=== PATIENT | female | born 1960 | race Caucasian/White ===

== ENCOUNTER 2017-04-29 22:18 | Emergency (ER) | payer BC ==
[2017-04-29 22:23] VITALS: BP 132/95; PULSE 81; TEMP 98; BMI 28.3
[2017-04-29] MEDS ORDERED: VANCOMYCIN 1,000 MG in DEXTROSE 5%-WATER - 250 ML IVPB STA (22:45)
--- NOTE | 2017-04-29 22:47 | PDOC ---
History of Present Illness - General Chief Complaint: Ear Problem Stated Complaint: RT EAR PAIN Time Seen by Provider: 04/29/17 22:44 - History of Present Illness Initial Comments: 04/29/17 22:59 This is a 56-year-old female who has a history of a recent left quaker abscess. Patient now comes in complaining of similar discomfort on her right quaker and right area just in front of her ear. Patient is also complaining of pain in her ear. Patient was given a course of amoxicillin for the left-sided abscess which spontaneously opened and drained and then resolved. Patient denies history of other prior abscesses in the past. Patient denies any fevers or chills. Patient denies any other complaints. Patient said she is otherwise healthy. PAST MEDICAL HISTORY: no significant history PAST SURGICAL HISTORY: no significant history FAMILY HISTORY: no pertinant history SOCIAL HISTORY: Pt lives with family and is employed. MEDICATIONS: reviewed ALLERGIES: As per nursing notes Review of Systems General: No fevers or chills, no weakness, no weight loss HEENT: No change in vision. No sore throat,. No ear pain CardioVascular: No chest pain or shortness of breath Respiratory:No cough, or wheezing. Gastrointestinal: no nausea, vomitting, diarrhea or constipation, No rectal bleeding Genitourinary: No dysuria, hematuria, or frequency Musculoskeletal: No joint or muscle pain or swelling Neurologic: No headache, vertigo, dizziness or loss of consciousness Psychiatric: nor depression Skin: No rashes or easy bruising, skin abscess on face as per history of present illness Endocrine: no increased thirst or abnormal weight change Allergic: no skin or latex allergy All other systems reviewed and normal Exam: General: Well-nourished well-developed individual, no acute distress HEENT: Throat: Normal, tonsils normal, no erythema or exudate Neck: Supple, no meningeal signs, no lymphadenopathy FACE: There are too small superficial abscesses one of the right quaker area and one just anterior to the right ear. EAR: There are no lesions within the ear canal however there is some inflammation and debris consistent with an otitis externa Eyes::Pupils equal reactive and round, extraocular motion intact Chest: Nontender to palpation Extremities: Warm, dry, no cyanosis, clubbing, or edema Skin: No rashes Neuro: Alert and oriented x3, CN II - XII intact, nonfocal exam with normal strength, normal sensation, normal reflexes, normal gait, Psych: Normal mood and affect Medical decision making: This is a 56-year-old female who comes in complaining of some superficial abscesses of the left quaker and left side of her face. Patient denies any other associated symptoms including fever or vomiting. Will send CBC and give patient a dose of IV vancomycin to cover her for MRSA as well as other common skin pathogens Assessment and plan: This is a 56-year-old female who comes in complaining of some bumps that are swollen and tender on the right side of her face. Patient has history of similar symptoms in the past that were secondary to superficial abscesses. Patient has a CBC that shows a white count of 11.3 otherwise there is no left shift. Patient's blood work was otherwise unremarkable Patient was given a gram of vancomycin IV before leaving. Patient able to tolerate by mouth's. Patient given prescription for Bactrim DS. Patient discharged will follow-up with her primary care doctor in 1-2 days 04/29/17 23:54 Past History - Past Medical History Allergies/Adverse Reactions: Allergies Allergy/AdvReac Type Severity Reaction Status Date / Time iodine Allergy Unknown Verified 01/15/14 16:42 Home Medications: Ambulatory Orders Levothyroxine [Synthroid -] 150 mcg PO DAILY 01/15/14 Ibuprofen [Advil -] 400 mg PO ONCE 04/29/17 Sulfamethoxazole/Trimethoprim [Bactrim DS -] 2 tab PO BID #28 tablet 04/29/17 Cancer: Yes (BREAST) COPD: No Thyroid Disease: Yes - Suicide/Smoking/Psychosocial Hx Smoking History: Never smoked Hx Alcohol Use: No Substance Use Type: None *Physical Exam - Vital Signs Last Vital Signs Temp Pulse Resp BP Pulse Ox 98 F 81 16 132/95 95 04/29/17 22:21 04/29/17 22:21 04/29/17 22:21 04/29/17 22:21 04/29/17 22:21 ED Treatment Course - LABORATORY CBC & Chemistry Diagram: 04/29/17 23:01 *DC/Admit/Observation/Transfer Diagnosis at time of Disposition: Right otitis externa Skin abscess Qualifiers: Site of cutaneous abscess: face Qualified Code(s): L02.01 - Cutaneous abscess of face - Discharge Dispostion Disposition: HOME Condition at time of disposition: Stable Admit: No - Prescriptions Prescriptions: Sulfamethoxazole/Trimethoprim [Bactrim DS -] 2 tab PO BID #28 tablet - Referrals Referrals: Shahab Donnelly MD [Primary Care Provider] - - Patient Instructions Printed Discharge Instructions: DI for Skin Abscess Additional Instructions: Do hot soaks to the area 3 times a day for 20 minutes at a time 4 drops of the Corticosporin otic in your right ear before bed and put a piece of cotton or something in there to keep the drops in the ear overnight. Do this for 7 days Take Bactrim 2 tablets twice a day for 7 days for the infection. Follow-up with your doctor on Monday for reevaluation to make sure that the infection is improving. Return to the emergency department immediately with ANY new, persistent or worsening symptoms. Continue any medications as previously prescribed by your physician. You should follow up with your primary doctor as soon as possible regarding today's emergency department visit. . Please make sure your doctor reviews the results of your emergency evaluation. Thank you for coming to the Emergency Department today for your care. It was a pleasure to see you today. Please note that your evaluation is INCOMPLETE until you follow-up with your doctor. - Post Discharge Activity
[2017-04-29] MEDS ORDERED: VANCOMYCIN 1,000 MG VIAL (RESTRICTED TO ID ONLY) ONE (22:48)
[2017-04-29] MEDS ORDERED: NEOMYCIN/POLYMYXN/HC OTIC SOLUTION 10 ML BOTTLE AD STA (23:03)
[2017-04-29 23:11] LABS: RDW 11.9 % (11.6-15.6)
[2017-04-29] MEDS ORDERED: NEOMYCIN/POLYMYXN/HC OTIC SOLUTION 10 ML BOTTLE ONE (23:15)
[2017-04-29 23:17] LABS: BASOPHIL 0.4 % (0-2.0); EOSINOPHIL 2.2 % (0-4.5); MCH 30.5 pg (25.7-33.7); MCHC 33.5 g/dl (32.0-36.0); MEAN CELL VOLUME 91.2 fl (80-96); PLATELET COUNT 281 K/MM3 (134-434); WHITE BLOOD COUNT 11.3 K/mm3 (4.0-10.8)
== END 2017-04-30 00:30 | disposition home or self-care (01) ==
LOC: FER 22:18
DX: L02.01 Cutaneous abscess of face (principal); H60.91 Unspecified otitis externa, right ear; Z85.3 Personal history of malignant neoplasm of breast
CPT/HCPCS: 36415; 85025; 99282-25

== ENCOUNTER 2017-06-25 22:30 | Emergency (ER) | payer BC ==
[2017-06-25 22:36] VITALS: BP 146/96; PULSE 78; TEMP 98.3; BMI 27.4
[2017-06-25] MEDS ORDERED: CEPHALEXIN MONOHYDRATE 500 MG CAPSULE (UD) PO ONE (22:49)
[2017-06-25] MEDS ORDERED: LIDOCAINE VISCOUS 2% ORAL/TOP 20 ML UNIT-DOSE CUP MM ONE (22:50)
[2017-06-25] MEDS ORDERED: CEPHALEXIN MONOHYDRATE 500 MG CAPSULE (UD) ONE (22:52)
[2017-06-25] MEDS ORDERED: LIDOCAINE VISCOUS 2% ORAL/TOP 20 ML UNIT-DOSE CUP ONE (22:54)
--- NOTE | 2017-06-25 22:55 | PDOC ---
History of Present Illness - General Chief Complaint: Pain, Acute Stated Complaint: SORE THROAT/ CYST ON VAGINA Time Seen by Provider: 06/25/17 22:49 - History of Present Illness Initial Comments: 06/26/17 06:26 1. Cyst on mons pubis x 3 days 2. Sore throat x weeks, has taken abx course Timing/Duration: 1 week Severity: moderate Modifying Factors: improves with: other (sore thorat--no relief with abx) Past History - Past Medical History Allergies/Adverse Reactions: Allergies Allergy/AdvReac Type Severity Reaction Status Date / Time iodine Allergy Unknown Verified 06/25/17 22:31 Home Medications: Ambulatory Orders Levothyroxine [Synthroid -] 150 mcg PO DAILY 01/15/14 Cephalexin [Keflex] 500 mg PO QID #40 capsule 06/25/17 Cancer: Yes (BREAST) COPD: No Thyroid Disease: Yes - Suicide/Smoking/Psychosocial Hx Smoking History: Never smoked Have you smoked in the past 12 months: No Information on smoking cessation initiated: No Hx Alcohol Use: Yes (OCCAS) Drug/Substance Use Hx: No Substance Use Type: None Review of Systems - Review of Systems Able to Perform ROS?: Yes All Other Systems: Reviewed and Negative *Physical Exam - Vital Signs Last Vital Signs Temp Pulse Resp BP Pulse Ox 98.3 F 78 16 146/96 97 06/25/17 22:33 06/25/17 22:33 06/25/17 22:33 06/25/17 22:33 06/25/17 22:33 - Physical Exam General Appearance: Yes: Nourished HEENT: positive: Pharynx Normal Neck: negative: Lymphadenopathy (R), Lymphadenopathy (L) Respiratory/Chest: positive: Lungs Clear Cardiovascular: positive: Regular Rhythm Female Pelvic Exam: positive: other (2cm area of tenderness with surrounding erythema on mons pubis) Gastrointestinal/Abdominal: negative: Tender Lymphatic: negative: Adenopathy Musculoskeletal: positive: Normal Inspection Extremity: positive: Normal Capillary Refill Integumentary: positive: Normal Color Neurologic: positive: Alert Medical Decision Making - Medical Decision Making 06/26/17 06:29 POCUS--no drainable collection a/p small abscess with surrounding cellulits no drainable collection abx, warm soaks *DC/Admit/Observation/Transfer Diagnosis at time of Disposition: Cellulitis Qualifiers: Site of cellulitis: unspecified site Qualified Code(s): L03.90 - Cellulitis, unspecified - Discharge Dispostion Disposition: HOME Condition at time of disposition: Stable - Prescriptions Prescriptions: Cephalexin [Keflex] 500 mg PO QID #40 capsule - Referrals Referrals: Shahab Donnelly MD [Primary Care Provider] - Call tomorrow - Patient Instructions Printed Discharge Instructions: DI for Cellulitis -- Adult Additional Instructions: Warm soaks to cyst at least four times daily - Post Discharge Activity
== END 2017-06-25 22:57 | disposition home or self-care (01) ==
LOC: FER 22:30
DX: L03.90 Cellulitis, unspecified (principal); Z85.3 Personal history of malignant neoplasm of breast; E07.9 Disorder of thyroid, unspecified
CPT/HCPCS: 99281-25

== ENCOUNTER 2017-06-27 01:46 | Emergency (ER) | payer BC ==
--- NOTE | 2017-06-27 01:56 | PDOC ---
History of Present Illness - General Chief Complaint: Pain, Acute Stated Complaint: CYST ON VAGINA Time Seen by Provider: 06/27/17 01:56 - History of Present Illness Initial Comments: This 56-year-old woman, seen here last night with infected cyst/mild cellulitis of the mons pubis returns with increasing pain and swelling in the area. Past medical history significant for left-sided partial mastectomy and axillary lymph node dissection. Subsequently, she had multiple episodes of cellulitis in the left arm requiring IV antibiotics . Patient states that she has not had any further arm cellulitis in several years. She has 1 previous cyst infection on the right side of her face which drained spontaneously after oral antibiotic course/warm packing of the area. Current episode began Monday (06/25) when she noticed discomfort/redness/mild swelling in the lower suprapubic region. No previous episodes of cellulitis/ abscess in this area. Workup yesterday including bedside ultrasound revealed no evidence of drainable collection and she was sent home on Keflex 500 mg every 6 hours. Patient states that she has been taking the medication as prescribed and warm packing "about 4 times" today. She has been monitoring her temperature and reports that she has not had any fever. No drainage reported from the area. Past History - Past Medical History Allergies/Adverse Reactions: Allergies Allergy/AdvReac Type Severity Reaction Status Date / Time iodine Allergy Unknown Verified 06/27/17 01:48 Home Medications: Ambulatory Orders Levothyroxine [Synthroid -] 150 mcg PO DAILY 01/15/14 Cephalexin [Keflex] 500 mg PO QID #40 capsule 06/25/17 Cancer: Yes (BREAST) COPD: No Thyroid Disease: Yes - Suicide/Smoking/Psychosocial Hx Smoking History: Never smoked Have you smoked in the past 12 months: No Information on smoking cessation initiated: No Hx Alcohol Use: No Drug/Substance Use Hx: No Substance Use Type: None Review of Systems - Review of Systems Able to Perform ROS?: Yes Comments:: 12 point review of systems is negative except for what is noted in the history of present illness *Physical Exam - Vital Signs Last Vital Signs Temp Pulse Resp BP Pulse Ox 98.3 F 95 H 16 135/83 95 06/27/17 01:49 06/27/17 01:49 06/27/17 01:49 06/27/17 01:49 01/30/18 01:49 - Physical Exam Comments: GENERAL: Adult female, alert and oriented 3, no acute distress HEAD: Normal with no signs of trauma. EYES: PERRLA, EOMI, sclera anicteric, conjunctiva clear. ENT: Ears normal, nares patent, oropharynx clear without exudates. Moist mucous membranes. NECK: Normal range of motion, supple without lymphadenopathy, JVD, or masses. LUNGS: Breath sounds equal, clear to auscultation bilaterally. No wheezes, and no crackles. HEART:Regular rate and rhythm, normal S1 and S2 without murmur, rub or gallop. ABDOMEN:.normal bowel sounds No guarding,tenderness or rebound.No masses No distention. EXTREMITIES: Normal range of motion, no edema. No clubbing or cyanosis. No erythema, or tenderness. NEUROLOGICAL: Cranial nerves II through XII grossly intact. Normal speech. No focal neurological deficits. MUSCULOSKELETAL: Back non-tender to palpation, no CVA tenderness SKIN: 4 cm diameter erythematous, indurated, tender, mildly warm to touch area of mons pubis without fluctuance or drainage Progress Note - Progress Note Progress Note: This 56-year-old woman returns with progressive pain in the area of infected cyst in the suprapubic region. She has not had fever or other systemic symptoms. Exam reveals that the area of inflammation has increased but there is no fluctuance or discharge. The area continues to be indurated consistent with cellulitis without drainable collection. Patient states that in the past episodes of cellulitis, she has received 1 IV antibiotic dose with subsequent good response. Will administer 3 g Unasyn IV now with plan to continue Keflex 500 mg every 6 hours. She should aggressively warm pack the area and use Tylenol alternating with ibuprofen as needed for pain. Patient has been seen by Dr. Hirsch (rib chopper) in the past. She has been advised to follow up with her and to call the office in the morning to arrange follow-up with her within the next few days. *DC/Admit/Observation/Transfer Diagnosis at time of Disposition: Cellulitis of suprapubic region - Discharge Dispostion Disposition: HOME Condition at time of disposition: Stable - Referrals Referrals: Belem Hirsch [Staff Physician] - - Patient Instructions Printed Discharge Instructions: DI for Skin Abscess Additional Instructions: Continue warm packing of the swollen, painful area Continue Keflex 500 mg 4 times a day as prescribed Ibuprofen/acetaminophen alternating as needed for pain Call Dr. Hirsch' office later today to arrange follow-up within the next 2-3 days Return to ER if you develop high fever, severe pain - Post Discharge Activity
[2017-06-27 01:58] VITALS: BP 135/83; PULSE 95; TEMP 98.3; BMI 27.4
[2017-06-27] MEDS ORDERED: AMPICILLIN NA/SULBACTAM NA 3 GM in SODIUM CHLORIDE 100 ML IVPB ONE (02:19)
[2017-06-27] MEDS ORDERED: AMPICILLIN NA/SULBACTAM NA 3 GM VIAL ONE (02:20)
== END 2017-06-27 03:33 | disposition home or self-care (01) ==
LOC: FER 01:46
DX: L03.818 Cellulitis of other sites (principal); Z85.3 Personal history of malignant neoplasm of breast; E07.9 Disorder of thyroid, unspecified
CPT/HCPCS: 99281-25

== ENCOUNTER 2018-09-30 09:53 | Emergency (ER) | payer BC ==
--- NOTE | 2018-09-30 10:09 | PDOC ---
History of Present Illness - General Chief Complaint: Injury Stated Complaint: FINGER INJURY Time Seen by Provider: 09/30/18 10:00 History Source: Patient Exam Limitations: No Limitations - History of Present Illness Initial Comments: 09/30/18 10:47 58y F hx of hypothyroidism, breast ca, presents with complaint of finger laceration. The pt was reaching into a drawer and the tip of her R index finger struck the tip of a clean knife. The area was bleeding persistently so she came to the ED for evaluation. No other injuries, no associated numbness/tingling/ weakness. area was irrigated with water last tetanus in the PMD: Dr. Donnelly Constitutional - no reported Fever, Chills, Musculskelatal - +R index finger laceration no reported back pain, joint swelling skin - no reported bruising, erythema, rash neurological: no reported numbness, focal weakness, tingling, hematologic: no reported easy bruising, easy bleeding GENERAL: The patient is awake, alert, and fully oriented, Nontoxic - in no acute distress. EXTREMITIES: R index finger: approx 1cm non-gaping laceration at tip of R index finger without active bleeding, no fb appreciated, no redeness. mildly ttp to palpation. sensation intact. plan: laceration without active bleeding, non gaping. area was closed using dermabond tetanus updated will dc with supportive caer returnp recautinos were dsicussed I discussed the physical exam findings, ancillary test results and final diagnoses with the patient. I answered all of the patient's questions. The patient was satisfied with the care received and felt comfortable with the discharge plan and treatment plan. The patient will call their primary care physician within 24 hours to arrange follow-up and will return to the Emergency Department with any new, persistent or worsening symptoms. Past History - Past Medical History Allergies/Adverse Reactions: Allergies Allergy/AdvReac Type Severity Reaction Status Date / Time iodine Allergy Unknown Verified 09/30/18 10:01 Home Medications: Ambulatory Orders Levothyroxine [Synthroid -] 150 mcg PO DAILY 01/15/14 Zolpidem Tartrate [Ambien] 10 mg PO HS 09/30/18 Cancer: Yes (BREAST) COPD: No Thyroid Disease: Yes - Suicide/Smoking/Psychosocial Hx Smoking History: Never smoked Have you smoked in the past 12 months: No Hx Alcohol Use: No Drug/Substance Use Hx: No Substance Use Type: None Procedures - Consent Consent obtained: Verbal - Laceration/Wound Repair Right 2nd digit Wound Length: to 2.5 cm Wound Explored: clean Wound's Depth, Shape: superficial Irrigated w/ Saline: Yes Wound Debrided: minimal Wound Repaired With: Dermabond *DC/Admit/Observation/Transfer Diagnosis at time of Disposition: Finger laceration Qualifiers: Encounter type: initial encounter Finger: index finger Damage to nail status: without damage Foreign body presence: without foreign body Laterality: right Qualified Code(s): S61.210A - Laceration without foreign body of right index finger without damage to nail, initial encounter - Discharge Dispostion Disposition: HOME Condition at time of disposition: Improved Decision to Admit order: No - Referrals Referrals: Shahab Donnelly MD [Primary Care Provider] - - Patient Instructions Printed Discharge Instructions: Tetanus, Diphtheria, and Pertussis Vaccine, DI for Laceration Repair With Dermabond Additional Instructions: Return to the emergency department immediately with ANY new, persistent or worsening symptoms including any redness, worsening pain, bleeding, purulent discharge, swelling or other concerns. Afterwards he may clean gently with soap and water. Do not apply any lotions/ointments to the area as it may speed breakdown of the glue. You MUST call and follow up with your doctor in 4-5 days for further evaluation of your symptoms. Results were discussed with you. Please make sure your doctor reviews the results of your emergency evaluation. Print Language: YAKUT - Post Discharge Activity
[2018-09-30 10:15] VITALS: BP 145/90; PULSE 77; TEMP 98.1; BMI 27.4
[2018-09-30] MEDS ORDERED: DIPHTH,PERTUSS(ACELL),TET 0.5 ML DISP.SYRIN IM ONE ×2 (10:21→10:25)
== END 2018-09-30 10:50 | disposition home or self-care (01) ==
LOC: FER 09:53
PROC: 0HQFXZZ Repair Right Hand Skin, External Approach (ICD-10-PCS; principal; 2018-09-30)
PROC: 3E0234Z Introduction of Serum, Toxoid and Vaccine into Muscle, Percutaneous Approach (ICD-10-PCS; 2018-09-30)
DX: S61.210A Laceration without foreign body of right index finger without damage to nail, initial encounter (principal); E03.9 Hypothyroidism, unspecified; Z85.3 Personal history of malignant neoplasm of breast; W26.0XXA Contact with knife, initial encounter; Y93.89 Activity, other specified; Y92.000 Kitchen of unspecified non-institutional (private) residence as the place of occurrence of the external cause
CPT/HCPCS: 90715; 99282-25

== ENCOUNTER 2018-10-07 17:52 | Emergency (ER) | payer BC ==
--- NOTE | 2018-10-07 17:57 | PDOC ---
History of Present Illness - General Chief Complaint: Sore Throat Stated Complaint: SORE THROAT COUGH DIFFICULTY SWALLOWING History Source: Patient Exam Limitations: No Limitations - History of Present Illness Initial Comments: 10/07/18 18:43 HPI 58y F hx of hypothyroidism, breast ca, and asthma presenting with shortness of breath, sore throat, hoarse voice and productive cough /congestion since last night. She is unable to identify any possible triggers. Admits she may have had positive sick contact with pneumonia. Patient also endorses subjective chills, b /l neck pain, b/l ear pain, and a diffuse headache. She used her inhaler at home last night at midnight and today with minimal relief of her symptoms. Denies fever, chills, chest pain,palpitation, dizziness, weakness, N, V, D, abdominal pain, bladder and bowel problems, leg swelling, rash or wounds. No recent travel. No new changes in medications. no history of ICU stay or intubations/hospitalizations for asthma Allergies: iodine. Past Medical History: as documented in EMR/HPI Social history: Lives with family. No ETOH or drug use. Current occasional smoker. Surgical history: noncontributory Meds: as documented in EMR PMD: Neshiwat 10/07/18 18:46 Past History - Past Medical History Allergies/Adverse Reactions: Allergies Allergy/AdvReac Type Severity Reaction Status Date / Time iodine Allergy Unknown Verified 10/07/18 17:54 Home Medications: Ambulatory Orders Levothyroxine [Synthroid -] 150 mcg PO DAILY 01/15/14 Zolpidem Tartrate [Ambien] 10 mg PO HS 09/30/18 Albuterol Sulfate Inhaler - [Ventolin HFA Inhaler -] 2 inh PO Q4H PRN #1 inh 05/16 Azithromycin [Zithromax 250mg Tablets -] 250 mg PO UTDICT #6 tab 10/07/18 Cancer: Yes (BREAST) COPD: No Thyroid Disease: Yes - Suicide/Smoking/Psychosocial Hx Smoking History: Never smoked Have you smoked in the past 12 months: No Hx Alcohol Use: No Drug/Substance Use Hx: No Substance Use Type: None Review of Systems - Review of Systems Able to Perform ROS?: Yes Comments:: 10/07/18 18:10 Review of systems Constitutional: no fevers or chills. No weakness HEENT: +headache or dizziness. No congestion. No visual/hearing disturbances. + ear pain, +sore throat, +neck pain, +difficulty swallowing, +hoarse voice. CVS: no cp or syncope. Resp: +sob. +cough. Gastrointestinal: no abdominal pain, nausea or vomiting. MUSCULOSKELETAL: No joint pain and swelling. No back pain. +neck pain SKIN: no redness or skin changes, no discharge, no rash. No wounds. Hematologic: no easy bruising/bleeding. NEUROLOGIC: +headache, dizziness, No LOC or altered mental status. No weakness, numbness or tingling. Psych: no anxiety or depression Allergic/Immunologic: no allergies All other systems reviewed and negative, or as documented in HPI. *Physical Exam - Physical Exam Comments: 10/07/18 18:10 Physical exam: General: Well appearing, awake and alert, NAD. HEENT: NCAT, PERRL, EOMI, clear conjunctiva, anicteric, moist mucus membranes, clear oropharynx. Airway patent, normal phonation. Uvula midline. No sinus tenderness, TM clear, no pinna tenderness to manipulation. Neck: neck supple, FROM; bilateral cervical and submandibular tenderness, no palp LAD. Resp: CTAB, normal and even respirations, no respiratory distress CVS: RRR, no murmurs, 2+ peripheral pulses throughout, no peripheral edema Abdomen: soft, NTND, no peritoneal signs. Back: nontender, normal inspection and ROM MSK: no edema, MORENO x4, ROM intact. No clubbing or cyanosis. normal bulk and tone. Extrem: no calf tenderness Neuro: alert, ambulatory. Skin: warm and well perfused, cap refill <2 sec, normal color Medical Decision Making - Medical Decision Making 10/07/18 18:43 hpi as documented VS reviewed, LGF but nontoxic appearing airway intact, speaking clear sentences, no respiratory distress. no hypoxia. ddx pharyngitis, strep throat, asthma exac. viral syndrome, URI, pneumonia, pleurisy, effusion, tonsillitis/uvulitis. no e/o obstruction, clinically doubt deep space infection. CXR to eval for pna/effusion; neg for acute chest pathology, normal cardiac silhouette, clear lungs, no ptx, airway intact, midline trachea. no effusion strep test_neg, f/u culture given analgesia, pt also requesting antibiotics rx azithromycin for atypical coverage due to her respiratory comorbidities and smoking history. rx albuterol inhaler Q4-6 hr as needed for cough/wheeze for asthma control. supportive care, hydration advised; avoid triggers such as environmental and smoking. Pt to be discharged in stable condition. Patient and family made aware of impression and plan, return precautions discussed (including but not limited to worsening pain or symptoms), fevers, or signs of infection, chest pain, respiratory distress, inability to tolerate oral intake, dehydration, syncope, or neurologic changes). Follow up with PMD as recommended, follow up information provided, take medications as instructed for duration of time. continue with supportive care, avoid triggers and precipitants. All questions answered to patient's satisfaction and expressed understanding and comfort with this. Patient does not suffer from an acute life-threatening medical condition at this time and is safe for outpatient follow-up. 10/07/18 18:44 10/07/18 19:00 10/08/18 07:16 *DC/Admit/Observation/Transfer Diagnosis at time of Disposition: Sore throat, Bronchitis - Discharge Dispostion Disposition: HOME Condition at time of disposition: Stable Decision to Admit order: No - Prescriptions Prescriptions: Albuterol Sulfate Inhaler - [Ventolin HFA Inhaler -] 2 inh PO Q4H PRN #1 inh PRN Reason: Cough Azithromycin [Zithromax 250mg Tablets -] 250 mg PO UTDICT #6 tab - Referrals Referrals: Shahab Donnelly MD [Primary Care Provider] - - Patient Instructions Printed Discharge Instructions: Sore Throat, DI for Cough -- Adult Additional Instructions: salt water gargles and warm lemon tea is appropriate as well for soothing qualities for sore throat/cough. minimize spread of infection given contagious nature, and cover your mouth and wash your hands adequately with soap and water. Stay well hydrated and rest. Cool air - walk around outdoors in the evening. May also try hot shower steam. This can alleviate the congestion and cough. May use the albuterol inhaler every 4-6 hours as needed for cough and breathing to clear up your airways. Return precautions include respiratory distress, difficulty breathing, cyanosis , chest pain, lethargy, confusion, dehydration, high fevers or pain. Make sure you stop smoking, this will worsen your cough and healing process. - Post Discharge Activity
[2018-10-07 18:02] VITALS: BP 131/94; PULSE 84; TEMP 99.4; BMI 27.4
[2018-10-07] MEDS ORDERED: IBUPROFEN 600 MG TABLET (FP) PO ONE ×2 (18:07→18:11)
[2018-10-07] MEDS ORDERED: ACETAMINOPHEN 325 MG TABLET (FP) PO ONE (18:09)
[2018-10-07] MEDS ORDERED: ALBUTEROL SO4 2.5/IPRATROPIUM 0.5 INH SOL 3 ML VIAL.NEB. NEB ONE (18:11)
[2018-10-07] MEDS: ALBUTEROL SO4 2.5/IPRATROPIUM 0.5 INH SOL 3 ML VIAL.NEB. NEB SCH ×3 (18:14→18:58)
[2018-10-07] MEDS ORDERED: ACETAMINOPHEN 325 MG TABLET (FP) ONE (18:15)
== END 2018-10-07 19:30 | disposition home or self-care (01) ==
LOC: FER 17:52
PROC: 3E0F7GC Introduction of Other Therapeutic Substance into Respiratory Tract, Via Natural or Artificial Opening (ICD-10-PCS; principal; 2018-10-07)
DX: J40 Bronchitis, not specified as acute or chronic (principal); J02.9 Acute pharyngitis, unspecified; Z85.3 Personal history of malignant neoplasm of breast; E07.9 Disorder of thyroid, unspecified; J45.909 Unspecified asthma, uncomplicated
CPT/HCPCS: 71046-TC-FY; 87070; 87880; 99281-25

== ENCOUNTER 2019-02-13 20:49 | Emergency (ER) | payer BC ==
[2019-02-13 22:06] VITALS: BP 131/88; PULSE 76; TEMP 98; BMI 27.4
--- NOTE | 2019-02-14 00:39 | PDOC ---
Documentation entered by Micha Thomas SCRIBE, acting as scribe for Regi Arango MD. Regi Arango MD: This documentation has been prepared by the Martha pedraza Xhesika, SCRIBE, under my direction and personally reviewed by me in its entirety. I confirm that the documentation accurately reflects all work, treatment, procedures, and medical decision making performed by me. History of Present Illness - General Chief Complaint: Pain Stated Complaint: L 2ND DIGIT (TOE) PAIN Time Seen by Provider: 02/13/19 21:01 History Source: Patient Exam Limitations: No Limitations - History of Present Illness Initial Comments: 02/13/19 22:10 The patient is a 58 year old female with a significant PMH of hypothyroidism, breast ca, and asthma who presents to the emergency department for L 2nd digit toe pain since last night. Patient states she was going down her driveway, tripped, tumbled and stubbed her L 2nd digit toe. Patient notes she endorses difficulty ambulating. Patient denies falling, hitting her head or LOC. The patient denies chest pain, shortness of breath, headache and dizziness. Denies fever, chills, cough, nausea, vomiting, diarrhea and constipation. Denies dysuria, frequency, urgency and hematuria. Allergies: iodine PCP: Dr. Donnelly Past History - Past Medical History Allergies/Adverse Reactions: Allergies Allergy/AdvReac Type Severity Reaction Status Date / Time iodine Allergy Unknown Verified 10/07/18 17:54 Home Medications: Ambulatory Orders Levothyroxine [Synthroid -] 150 mcg PO DAILY 01/15/14 Zolpidem Tartrate [Ambien] 10 mg PO HS 09/30/18 Albuterol Sulfate Inhaler - [Ventolin HFA Inhaler -] 2 inh PO Q4H PRN #1 inh 05/16 Azithromycin [Zithromax 250mg Tablets -] 250 mg PO UTDICT #6 tab 10/07/18 Asthma: Yes Cancer: Yes (L BREAST CA) COPD: No Thyroid Disease: Yes - Suicide/Smoking/Psychosocial Hx Smoking History: Unknown if ever smoked Have you smoked in the past 12 months: No Number of Cigarettes Smoked Daily: 0 Information on smoking cessation initiated: No Hx Alcohol Use: No Drug/Substance Use Hx: No Substance Use Type: None Review of Systems - Review of Systems Able to Perform ROS?: Yes Comments:: 02/13/19 22:11 GENERAL/CONSTITUTIONAL: No fever or chills. No weakness. HEAD, EYES, EARS, NOSE AND THROAT: No change in vision. No ear pain or discharge. No sore throat. CARDIOVASCULAR: No chest pain or shortness of breath. RESPIRATORY: No cough, wheezing, or hemoptysis. GASTROINTESTINAL: No nausea, vomiting, diarrhea or constipation. GENITOURINARY: No dysuria, frequency, or change in urination. MUSCULOSKELETAL: (+) L 2nd digit toe pain. No joint or muscle swelling. No neck or back pain. SKIN: No rash NEUROLOGIC: No headache, vertigo, loss of consciousness, or change in strength/ sensation. ENDOCRINE: No increased thirst. No abnormal weight change. HEMATOLOGIC/LYMPHATIC: No anemia, easy bleeding, or history of blood clots. ALLERGIC/IMMUNOLOGIC: No hives or skin allergy. *Physical Exam - Vital Signs Last Vital Signs Temp Pulse Resp BP Pulse Ox 98 F 76 14 131/88 98 02/13/19 20:52 02/13/19 20:52 02/13/19 20:52 02/13/19 20:52 02/13/19 20:52 - Physical Exam Comments: 02/13/19 22:12 GENERAL: Awake, alert, and fully oriented, in no acute distress HEAD: No signs of trauma EYES: PERRLA, EOMI, sclera anicteric, conjunctiva clear EXTREMITIES: (+) LLE 2nd toe increased flexion at proximal phalangeal joint. (+ ) pain with passive and active movement. No ecchymosis. No obvious nail damage. No other tenderness or edema of the foot. NEUROLOGICAL: Cranial nerves II through XII grossly intact. Normal speech, normal gait SKIN: Warm, Dry, normal turgor, no rashes or lesions noted. ED Treatment Course - RADIOLOGY Radiology Studies Ordered: Category Date Time Status TOE(S) LEFT [RAD] Stat Radiology 02/13/19 22:05 Ordered Progress Note - Progress Note Progress Note: This 58-year-old woman presents with a few day history of injury to her left second toe, sustained when she tumbled down her driveway (no other injury sustained) patient describes pain on weightbearing in the left second toe area. Patient states that she is wearing a sock outdoors because she cannot place any shoe on the sore toe. Exam as noted. Second left toe x-ray performed: No clear evidence of fracture or dislocation seen in the second toe or any other visualized bone. Results discussed with the patient: Clinical impression most consistent with soft tissue injury to his left second toe (sprain or contusion). For extra support of the painful toe, 2 x 2 gauze placed between the second and third toe and toes are "jeffry taped" together. Patient states that she takes ibuprofen for her pain which she should continue to take as needed; elevation and ice to foot should be continued for another 24 hours. Patient follows up with disintegrator for her foot care; if she has persistent pain and swelling in the area, she should follow-up *DC/Admit/Observation/Transfer Diagnosis at time of Disposition: Toe contusion Qualifiers: Encounter type: initial encounter Toe: lesser toe Damage to nail status: without damage Laterality: left Qualified Code(s): S90.122A - Contusion of left lesser toe(s) without damage to nail, initial encounter - Discharge Dispostion Disposition: HOME Condition at time of disposition: Stable - Referrals Referrals: Shahab Donnelly MD [Primary Care Provider] - - Patient Instructions Printed Discharge Instructions: DI for Contusion Additional Instructions: elevate/ice to left 2nd toe for the next 24 hours Can "jeffry taping" second toe to third toe for extra support for the next week to 10 days once you can wear shoes, consider using firm soled shoes Avoid strenuous lower body activity for the next 5-7 days Ibuprofen/naproxen/acetaminophen as needed for pain Return to ER or follow-up with your disintegrator if you had persistent toe pain/ swelling - Post Discharge Activity
== END 2019-02-13 22:40 | disposition home or self-care (01) ==
LOC: FER 20:49
DX: S90.122A Contusion of left lesser toe(s) without damage to nail, initial encounter (principal); W01.0XXA Fall on same level from slipping, tripping and stumbling without subsequent striking against object, initial encounter; Y93.89 Activity, other specified; Y92.89 Other specified places as the place of occurrence of the external cause; E03.9 Hypothyroidism, unspecified; J45.909 Unspecified asthma, uncomplicated; Z85.3 Personal history of malignant neoplasm of breast
CPT/HCPCS: 73660-TC-LT-FY; 99282-25

== ENCOUNTER 2022-09-05 20:20 | Emergency (ER) | payer BC ==
[2022-09-05 20:49] VITALS: BP 132/77; PULSE 87; RESP 18; TEMP 98.1; BMI 28.3
[2022-09-05] MEDS ORDERED: KETOROLAC TROMETHAMINE 30 MG/1 ML VIAL IM ONE (21:14)
[2022-09-05] MEDS ORDERED: KETOROLAC TROMETHAMINE 30 MG/1 ML VIAL ONE (21:24)
== END 2022-09-05 22:46 | disposition home or self-care (01) ==
LOC: FER 20:20
PROC: 3E0233Z Introduction of Anti-inflammatory into Muscle, Percutaneous Approach (ICD-10-PCS; principal; 2022-09-05)
DX: R07.89 Other chest pain (principal); R07.81 Pleurodynia; W01.0XXA Fall on same level from slipping, tripping and stumbling without subsequent striking against object, initial encounter
CPT/HCPCS: 71046-TC-FY; 71101-TC-RT-FY; 99284-25